=== PATIENT | male | born 2000 | race Caucasian/White ===

== ENCOUNTER 2024-06-29 21:25 | Emergency (ER) | payer OTHER ==
[2024-06-29] MEDS ORDERED: HYDROmorphone 1 MG/ML 1 ML SYRINGE ONE (22:41)
[2024-06-29] MEDS ORDERED: SODIUM CHLORIDE 0.9% 1,000 ML BAG ONE (22:50)
[2024-06-30] MEDS ORDERED: HYDROmorphone 1 MG/ML 1 ML SYRINGE ONE (04:49)
--- NOTE | 2024-08-02 09:57 | XR ---
Site ID [facility] Patient [facility] ID [id number] Order # Procedure CXR 2V EXAMINATION TYPE: XR chest 2V DATE OF EXAM: 06/30/2024 1:27 PM CLINICAL INDICATION: LEG NUMBNESS POST SURGERY COMPARISON: THIS EXAM WAS READ DURING PACS DOWNTIME, NO PRIORS AVAILABLE. TECHNIQUE: XR chest 2V Frontal view of the chest. FINDINGS: Lungs/Pleura: There is no evidence of pleural effusion, focal consolidation, or pneumothorax. Pulmonary vascularity: Unremarkable. Heart/mediastinum: Cardiomediastinal silhouette is unremarkable. Musculoskeletal: No acute osseous pathology. Other findings: None Lines/Tubes: IMPRESSION: No acute cardiopulmonary disease/process.
--- NOTE | 2024-08-03 15:33 | CT ---
EXAM: CT Angiography Abdomen and Pelvis With Runoff to the Lower Extremities Without and With Intravenous Contrast CLINICAL HISTORY: leg numbness post gonadal vascular coil done 06/28/24 TECHNIQUE: Axial computed tomographic angiography images of the abdomen, pelvis and lower extremities without and with intravenous contrast. CTDI is 28.5 mGy and DLP is 1100.4 mGy- cm. This CT exam was performed using one or more of the following dose reduction techniques: automated exposure control, adjustment of the mA and/or kV according to patient size, and/or use of iterative reconstruction technique. MIP reconstructed images were created and reviewed. COMPARISON: No relevant prior studies available. FINDINGS: VASCULATURE: Aorta:No acute findings. No abdominal aortic aneurysm. No dissection. Celiac trunk and mesenteric arteries:No acute findings. No occlusion or significant stenosis. Renal arteries:No acute findings. No occlusion or significant stenosis. Right iliac arteries:No acute findings. No occlusion or significant stenosis. Right femoral/popliteal arteries:No acute findings. No occlusion or significant stenosis. Right calf/foot arteries: The right calf arteries are patent with three-vessel runoff to the distal calf. The dorsalis pedis and posterior tibial arteries are patent bilaterally. Left iliac arteries: The origin of the left internal iliac artery is obscured by the extensive pelvic embolization coil material. However, the left internal iliac artery is otherwise patent. There is curvilinear hyperdense material on the precontrast imaging in the region of the internal iliac arterial branches along the left lateral pelvic wall. The appearance is atypical for phleboliths and this may represent embolic material. Left femoral/popliteal arteries:No acute findings. No occlusion or significant stenosis. Left calf/foot arteries: The left calf arteries are patent proximally. There is three-vessel runoff to the distal calf. The dorsalis pedis is not identified. However, this maybe artifactually occluded in the setting of prominent plantar flexion positioning of the feet. The posterior tibial artery extends below the ankle. Lung bases:Unremarkable. No mass. No consolidation. ABDOMEN: Liver:Unremarkable. No mass. Gallbladder and bile ducts:Unremarkable. No calcified stones. No ductal dilation. Pancreas:Unremarkable. No ductal dilation. No mass. Spleen:Unremarkable. No splenomegaly. Adrenals:Unremarkable. No mass. Kidneys and ureters:Unremarkable. No obstructing stones. No hydronephrosis. No solid mass. Stomach and bowel:Unremarkable. No obstruction. No mucosal thickening. PELVIS: Appendix:No findings to suggest acute appendicitis. Bladder:Unremarkable. No stones. No mass. Reproductive:Unremarkable as visualized. ABDOMEN, PELVIS and LOWER EXTREMITIES: Intraperitoneal space:Unremarkable. No significant fluid collection. No free air. Retroperitoneal space: There is extensive embolic metallic coil artifact throughout the left retroperitoneum extending vertically anterior to the psoas muscle and extending along the left lateral pelvic wall at the level of the iliac bifurcation. Bones/joints:No acute osseous abnormality. Soft tissues:No significant soft tissue abnormality. Lymph nodes:Unremarkable. No enlarged lymph nodes. IMPRESSION: 1. The aorta and iliac arteries are widely patent without stenosis or occlusion. 2. Negative bilateral lower extremity runoff. The left dorsalis pedis arteryis not clearlyevident. However, this is presumed artifactual with prominent plantar flexion of the foot. 3. Curvilinear hyperdense material on the precontrast imaging in the region of the internal iliac arterial branches along the left lateral pelvic wall. The appearance is atypical for phleboliths and this may represent embolic material. Please correlate with embolization procedure as this is located in the posterior pelvis and is presumed distinctly separate fromthe testicular venous branches. 4. 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 Radiologist: Abdirahman Motta MD Electronically Signed: 06/30/24 02:53 Study ready at 01:27 and initial results transmitted at 02:53 [facility]
== END 2024-06-30 05:49 | disposition other institution (70) ==
LOC: EC 21:25
CPT/HCPCS: 71046; 75635; 93005; 99283